=== PATIENT | male | born 1950 | race Caucasian/White ===

== ENCOUNTER → 2016-05-04 | Outpatient (CLI) | payer OTHER ==
[~2016-05-04] MED LIST: GLC/500 PO; LISI-725 PO; PRAV80TA PO
[2016-05-04 12:54] LABS: ALT/SGPT 28 U/L (12-78); AST/SGOT 14 U/L (15-37); BLOOD UREA NITROGEN 15 mg/dl (7-18); BUN/CREATININE RATIO 12.4 (10-20); CARBON DIOXIDE 29 mmol/L (21-32); CHLORIDE 105 mmol/L (98-107); CHOLESTEROL 156 mg/dl (0-200); GLUCOSE 121 mg/dl (70-99); POTASSIUM 3.9 mmol/L (3.5-5.1); SODIUM 142 mmol/L (136-145)
[2016-05-04 12:56] LABS: ALB/GLOB RATIO 1.1 (0.9-2); ALKALINE PHOSPHATASE 56 U/L (45-117); CHOLESTEROL/HDL RATIO 3.5; HDL CHOLESTEROL 44 mg/dl; LDL CHOLESTEROL CALCULATED 68 mg/dl; TRIGLYCERIDES 222 mg/dl (0-150); VERY LOW DENSITY LIPOPROT CALC 44 mg/dl
[2016-05-04 12:59] LABS: ESTIMATED AVERAGE GLUCOSE 160 mg/dl; HA1C FLAG Normal (Normal)
[2016-05-04 13:08] LABS: RATIO 36.5 mcg/mg (0-30.0)
== END | disposition home or self-care (01) ==
LOC: C.LABPVFM 08:47
PROVIDERS: ATTEND Family Medicine
DX: I10 Essential (primary) hypertension (principal); E78.5 Hyperlipidemia, unspecified; E11.29 Type 2 diabetes mellitus with other diabetic kidney complication

== ENCOUNTER → 2016-11-11 | Outpatient (CLI) | payer OTHER ==
[2016-11-11 17:35] LABS: BLOOD UREA NITROGEN 12 mg/dl (7-18); BUN/CREATININE RATIO 10.6 (10-20); CALCIUM 8.8 mg/dl (8.5-10.1); CARBON DIOXIDE 30 mmol/L (21-32); CHLORIDE 107 mmol/L (98-107); GLUCOSE 119 mg/dl (70-99); POTASSIUM 4.2 mmol/L (3.5-5.1); SODIUM 141 mmol/L (136-145)
[2016-11-12 06:38] LABS: ESTIMATED AVERAGE GLUCOSE 166 mg/dl; HA1C FLAG Normal (Normal)
== END | disposition home or self-care (01) ==
LOC: C.LABPVFM 13:43
PROVIDERS: ATTEND Family Medicine
DX: E11.9 Type 2 diabetes mellitus without complications (principal)

== ENCOUNTER → 2017-09-29 | Outpatient (CLI) | payer OTHER ==
[2017-09-29 12:41] LABS: HEMATOCRIT 42.5 % (42-52); MEAN CELL VOLUME 93.8 fL (80-100); MEAN CORPUSCULAR HEMOGLOBIN 30.9 pg (25-34); MEAN CORPUSCULAR HGB CONC 32.9 g/dl (32-36); MEAN PLATELET VOLUME 11.2 fL (7.4-10.4); PLATELET COUNT 196 K/uL (130-400); RED CELL DISTRIBUTION WIDTH CV 13.5 % (11.5-14.5); RED CELL DISTRIBUTION WIDTH SD 46.1 fL (36.4-46.3)
[2017-09-29 12:58] LABS: HEMOGLOBIN A1C 7.7 % (4.5-5.6)
[2017-09-29 13:14] LABS: ALBUMIN 3.6 gm/dl (3.4-5.0); ALKALINE PHOSPHATASE 59 U/L (45-117); ALT/SGPT 23 U/L (12-78); AST/SGOT 13 U/L (15-37); BLOOD UREA NITROGEN 30 mg/dl (7-18); CALCIUM 8.7 mg/dl (8.5-10.1); CARBON DIOXIDE 25 mmol/L (21-32); CHOLESTEROL 173 mg/dl (0-200); CREATININE 1.31 mg/dl (0.60-1.40); GLUCOSE 153 mg/dl (70-99); LDL CHOLESTEROL CALCULATED 87 mg/dl; POTASSIUM 4.2 mmol/L (3.5-5.1); SODIUM 136 mmol/L (136-145); TOTAL PROTEIN 7.2 gm/dl (6.4-8.2)
== END | disposition home or self-care (01) ==
LOC: C.LABPVFM 10:13
PROVIDERS: ATTEND Family Medicine
DX: E66.9 Obesity, unspecified (principal)